=== PATIENT | female | born 1975 | race Asian ===

== ENCOUNTER 2024-10-31 09:46 | Emergency (ER) | payer MEDICAID, OTHER, SELFPAY ==
--- NOTE | ~2024-10-31 | XR_ITS ---
EXAMINATION: XR FINGER, LEFT CLINICAL INFORMATION: pain, 2nd digit COMPARISON: None available. TECHNIQUE: Three views of the left second digit. FINDINGS: No fracture, dislocation, or suspicious bone lesion. Normal alignment. Normal joints. Mild soft tissue swelling of the distal second digit. No radiopaque foreign body seen. XR/XR finger LT min 2V IMPRESSION: Mild soft tissue swelling distal second digit. No underlying fracture or radiopaque foreign body. Electronically signed by: Marshall Lopez MD 10/31/2024 01:54 PM EST
[2024-10-31 10:21] VITALS: BP 149/86; PULSE 86; RESP 16; TEMP 36.6; O2SAT 99; BMI 30.4
--- NOTE | 2024-10-31 13:05 | ED.GENADULT ---
HPI - General Adult General Chief complaint: Skin/Abscess/Foreign Body Stated complaint: l index finger infection swelling Time Seen by Provider: 10/31/24 12:02 Source: patient, family and RN notes reviewed Mode of arrival: ambulatory Limitations: no limitations History of Present Illness ED Provider: Amanda Barry PA-C HPI narrative: This is a 49-year-old female who presents emergency department with complaints of left 2nd digit pain and swelling. Patient reports that this started 4 days ago. Reports that she believes she pulled a hangnail off of her finger and has had pain and swelling since. She reports as she took a dose of naproxen yesterday which provided her with relief. He denies any fevers or chills. No other complaints or concerns at this time. MD complaint: Finger pain Quality: aching Relieving factors: none Exacerbating factors: none Associated symptoms: denies other symptoms Treatments prior to arrival: none Related Data Previous Rx's ?Medication ?Instructions ?Recorded acetaminophen 500 mg tablet 500 mg PO Q6H PRN pain #30 tabs 10/31/24 (Tylenol Extra Strength) cephalexin 500 mg capsule 500 mg PO QID 7 days #28 caps 10/31/24 doxycycline hyclate 100 mg capsule 100 mg PO BID 7 days #14 caps 10/31/24 naproxen 500 mg tablet 500 mg PO BID PRN pain #20 tabs 10/31/24 Allergies Allergy/AdvReac Type Severity Reaction Status Date / Time No Known Allergies Allergy Verified 10/31/24 10:23 Review of Systems Review of Systems: Yes all other systems are reviewed and are negative Constitutional: Constitutional: Reports as per HPI [facility] Social History Social History Unable to assess alcohol history related to: Unknown Smoked in Last 30 Days: No Use of substances other than those prescribed or required for medical reasons: Unknown Advance Directives: No Advance Directives Information Provided: Yes Physical Exam ED Vital Signs: Vital Signs - 24 hr 10/31/24 10:21 Temperature 97.8 F Pulse Rate 86 Respiratory Rate 16 Blood Pressure 149/86 H Pulse Oximetry 99 Oxygen Delivery Method Room Air BMI result Body Mass Index 30.4 Const General: cooperative, comfortable and no acute distress Orientation/consciousness: patient oriented x3 Limitations: no limitations HENMT Head: Yes normal to inspection, Yes normocephalic and Yes atraumatic Ears: hearing grossly normal bilaterally General nose exam: Normal external nose present Face and sinus: Yes normal facial exam Mouth: Normal oral and palatal mucosa present, oropharynx normal and moist mucous membranes Throat: Yes posterior oropharynx normal Eyes General: appearance normal, both eyes and all related structures Eyelids: Yes eyelids normal Conjunctivae: conjunctivae normal Sclerae: sclerae normal Pupils: Equal, round and reactive pupils present EOM: EOMs intact bilaterally Neck Neck: Yes normal visual inspection, Yes full ROM and Yes no lymphadenopathy Lymphatic: no lymphadenopathy noted Chest Chest palpation & inspection: normal inspection of the chest Resp Effort & Inspection: normal respiratory effort and able to speak in complete sentences Auscultation: clear to auscultation bilaterally, no crackles, no rales, no rhonchi and no wheezes Cardio Rate: regular rate Rhythm: regular rhythm Heart sounds: S1 normal heart sound present and S2 normal heart sound present GI Inspection: Yes normal to inspection Skin General skin exam: no rashes or lesions noted Trauma: no lacerations or abrasions Wounds: no wounds Neuro General: patient oriented x3 and moves all extremities Cranial nerves: Yes Equal, round and reactive pupils present Extrem Other: Left 2nd digit with erythema, edema, and fluctuance noted along the lateral nail bed. Full flexion and extension of the PIP and DIP, strong radial pulse, no erythema extending past the PIP, fluctuance and induration does not extend into the pulp of the digit General: Yes normal to inspection Right upper extremity: normal to inspection Left upper extremity: normal to inspection Right lower extremity: normal to inspection Left lower extremity: normal to inspection Medications Administered Discontinued Medications Generic Name Dose Route Start Last Admin Trade Name Freq PRN Reason Stop Dose Admin Diphtheria/Tetanus/Acell Pertussis 0.5 ml 10/31/24 13:28 10/31/24 13:55 Diphth,Pertus(Acell),Tet Adult 0.5 Ml Syringe IM 10/31/24 13:29 0.5 ml .ONCE ONE Administration Lidocaine HCl 5 ml 10/31/24 13:28 10/31/24 13:54 Lidocaine Hcl 1 % Mpf 5 Ml Vial SUBCUT 10/31/24 13:29 5 ml ONCE ONE Administration Naproxen 500 mg 10/31/24 13:14 10/31/24 13:53 Naproxen 500 Mg Tablet PO 10/31/24 13:15 500 mg ONCE ONE Administration Procedures Abscess I/D Site: hand Side (if applicable): right Local Anesthetic: lidocaine 1% Amount of anesthesia used (mL): 4 Technique: incised with blade Amount of fluid expressed (mL): 2 Sent for culture/gram staining?: No Packing used?: none Complications: pain Medical Decision Making Medical Decision Making [facility] Narrative: This is a 49-year-old female who presents emergency department with complaints of left 2nd digit erythema, pain. No trauma or injury however she does report that she does bite her nails often, and believes she pulled out a hangnail. On arrival, vital signs within normal limits. She was exquisite tenderness overlying the lateral border of the nail bed. Does not extend into the pulp of the digit. Full flexion-extension of the PIP and DIP. Differential diagnoses include paronychia, fell and, cellulitis. An incision and drainage was performed, she had scant purulent drainage initially expressed however more blood was expressed. Patient tolerated procedure well without any complications or concerns. Educated the importance of warm continue with soaks 5-6 times per day. Given 1st dose of doxycycline and Keflex in the department. Her tetanus was updated as well. X-ray revealing no bony abnormalities. Discussed with patient and partner. Patient stable for discharge Differential Diagnosis Differential Diagnoses: The differential diagnosis associated with the presentation includes See above Radiology Impression Discussion of test interpretation with radiology: I have reviewed the radiologist's reading. Radiologist Impression: EXAMINATION: XR FINGER, LEFT CLINICAL INFORMATION: pain, 2nd digit COMPARISON: None available. TECHNIQUE: Three views of the left second digit. FINDINGS: No fracture, dislocation, or suspicious bone lesion. Normal alignment. Normal joints. Mild soft tissue swelling of the distal second digit. No radiopaque foreign body seen. XR/XR finger LT min 2V IMPRESSION: Mild soft tissue swelling distal second digit. No underlying fracture or radiopaque foreign body. Electronically signed by: Marshall Lopez MD 10/31/2024 01:54 PM [facility] [place] Dictated By: Marshall Lopez MD Signed By: <Electronically signed by Marshall Lopez MD in OV> Discharge Plan Discharge Clinical Impression: Paronychia, acute, finger Patient Disposition: Home, Self-Care Instructions: Paronychia (ED), Cellulitis (ED) Additional Instructions: You were seen in the emergency department due to left 2nd digit pain. Your x-ray did not show any bony abnormalities. You have a nail bed infection, we placed a small incision in this region. Take Keflex and doxycycline as prescribed, finish the entire course even if your symptoms improve. Warm soapy soaks for 5-6 times per day. This wound we will continue to drain, this is a normal progression. If any new or worsening symptoms occur including but not limited to worsening pain, redness, decreased range of motion to your finger, please seek emergent care. Prescriptions: New doxycycline hyclate 100 mg capsule 100 mg PO BID 7 Days Qty: 14 0RF cephalexin 500 mg capsule 500 mg PO QID 7 Days Qty: 28 0RF naproxen 500 mg tablet 500 mg PO BID PRN (Reason: pain) Qty: 20 0RF acetaminophen [Tylenol Extra Strength] 500 mg tablet 500 mg PO Q6H PRN (Reason: pain) Qty: 30 0RF Print Language: Czech
[2024-10-31] MEDS: NaPROXEN 500 MG TABLET PO (13:53)
[2024-10-31] MEDS: Lidocaine HCl 1 % MPF 5 ML VIAL SUBCUT (13:54)
[2024-10-31] MEDS: Diphth,Pertus(ACell),Tet Adult 0.5 ML SYRINGE IM (13:55)
[2024-10-31] MEDS: Bacitracin Oint 0.9 GM PACKET 1 APPL TOPICAL (15:29)
[2024-10-31] MEDS: cephALEXin 500 MG CAPSULE PO (15:29)
[2024-10-31] MEDS: Doxycycline Monohydrate 100 MG CAPSULE PO (15:31)
[2024-10-31 15:33] VITALS: BP 149/86; PULSE 86; RESP 16; TEMP 36.6; O2SAT 99
== END 2024-10-31 15:37 | disposition home or self-care (01) ==
PROVIDERS: Emergency Provider Emergency Medicine
DX: L03.012 Cellulitis of left finger (principal); M79.645 Pain in left finger(s); Z23 Encounter for immunization
CPT/HCPCS: 10060; 73140; 90471; 90715; 99284; J2003

== ENCOUNTER → 2024-10-31 13:28 | Outpatient (BNV) | payer MEDICAID, SELFPAY | PROVIDERS: Emergency Provider Emergency Medicine; Visit Provider Radiology Diagnostic Radiology | DX: M79.645 Pain in left finger(s) (principal) | CPT/HCPCS: 73140 ==

== ENCOUNTER 2024-11-04 08:15 | Outpatient (AMB) | payer OTHER, SELFPAY ==
--- NOTE | 2024-11-04 08:32 | AM.OFFWIN_ITS ---
Intake Vital Signs 11/04/24 08:35 Weight 163 lb BP 142/80 H Blood Pressure Location Rt brachial Position Sitting Pulse 110 H Pulse Source Pulse Oximeter Temp 98.6 F Temp Source Oral Pulse Oximetry (%) 97 Oxygen Delivery Method Room Air Intake Visit Reasons: [employer]-lt hand pointer finger swollen Intake Note: Patient here left pointer finger swelling that started last week which she went to the ED where finger was drained and put on two antibiotics and since then she has had diarrhea, vomiting and yesterday while cleaning the area she noticed some puss on the corner of it and ended up passing out. Patient Tobacco Use Status: Never used Tobacco Allergies No Known Allergies Allergy (Verified 11/04/24 08:37) Do you need a note to return to daycare/school/sports/work: No HPI HPI Comments History of Present Illness Details History of Present Illness - The patient is a 49-year-old female pr esenting with a swollen and painful finger diagnosed with paronychia on 10/31. - The finger issue initiated around Dece , and exacerbated by October 31, necessitating an x-ray and drainage procedure. - Doxycycline and Keflex were prescribed antibiotics; however, these led to gastrointestinal distress manifested as diarrhea. - Pain and pus accumulation continued, w ith the patient fainting from pain during cleaning attempts by . - Previous home advice included warm elias er with soap, without Epsom salt. - The patient's diabetes requires compre hensive antibiotic coverage, including MRSA. Physical Exam General: Cooperative, healthy appearing, comfortable, no acute distress and well developed Orientation: Patient oriented x3 Limitations: No limitations Head: Normal to inspection Ears: Hearing grossly normal bilaterally Nose: Normal external nose present Face and sinus: Normal facial exam Eyes: Appearance normal, both eyes and all related structures Neck: Normal visual inspection and Yes full ROM Respiratory: Normal respiratory effort and able to speak in complete sentences. Neuro: Patient oriented x3 Extremities: left 2nd digit, edema with small purulent area on lateral nail, very TTP, volar side of finger DIP with edema and pain. . PFSH Social History Unable to assess alcohol history related to: Unknown Patient Tobacco Use Status: Never used Tobacco Review of Systems Const All systems reviewed & are unremarkable except as noted in HPI and below Physical Exam Vital Signs: Last Vital Signs Temp 98.6 F 11/04/24 08:35 Pulse 110 H 11/04/24 08:35 BP 142/80 H 11/04/24 08:35 Pulse Ox 97 11/04/24 08:35 Oxygen Delivery Method Room Air 11/04/24 08:35 Office Procedures I&D Drain Details: left 2nd digit 16588-[id number] Drain Abscess on Finger, simple All charges added?: Procedure code (CPT) selection complete Assessment & Plan Assessment & Plan (1) Paronychia of finger: Code(s): L03.019 - Cellulitis of unspecified finger Qualifiers: Laterality: left Qualified Code(s): L03.012 - Cellulitis of left finger Plan: Plan Able to drain pocket of infection with fair amount of blood as well, pt with immediate relief. The patient will continue her prescribed course of Doxycycline and Keflex for MRSA coverage and infection control, with advice to take these with food to ease gastrointestinal upset. Soaking in Epsom salt several times daily is recommended to help with infection drainage, in addition to the previous drainage intervention that has reduced pain-inducing pressure. For pain relief, Tylenol is advised over Naproxen to avoid stomach disturbances. The patient is advised to complete the antibiotic course to ensure comprehensive coverage, particularly given her diabetes condition that necessitates wide-spectrum antimicrobial protection. Patient was informed and verbally consented to the use of an ambient scribe for clinic note documentation during this visit. Medications: Discontinued naproxen Discontinued Reason: Patient no longer taking 500 mg PO BID PRN 20 tabs 0RF pain acetaminophen (Tylenol Extra Strength) Discontinued Reason: Patient no longer taking 500 mg PO Q6H PRN 30 tabs 0RF pain Coding Level of Care Code New Pt Level 4 (42634) Diagnoses Paronychia of finger of left hand L03.012 Laterality: left CPT Codes I&D Drain - DRAIN 8: 83138-[id number] Drain Abscess on Finger, simple ([id number])
[2024-11-04 08:35] VITALS: BP 142/80; PULSE 110; TEMP 37; O2SAT 97
== END 2024-11-04 09:18 | disposition home or self-care (01) ==
PROVIDERS: Visit Provider Physician Assistant
DX: L03.012 Cellulitis of left finger (principal)
CPT/HCPCS: 26010

== ENCOUNTER → 2024-11-04 08:15 | Outpatient (BNVA) | payer OTHER, SELFPAY | PROVIDERS: Visit Provider Physician Assistant ==